=== PATIENT | female | born 1965 | race Two or more races ===

== ENCOUNTER 2021-02-03 16:26 | Inpatient (IN) | payer MEDICAID ==
[~2021-02-03] VITALS: Ht 167.6 cm; Wt 143.1 kg
--- NOTE | 2021-02-03 16:48 | NUR ---
patient came in to the er sent by PMD for hyperkalemia, denies chest pain, c/o headache x 10 days. On room air, breathing evenly and unlabored. Connected to the monitor and pulse ox. kept comfortable, will continue to monitor accordingly.
[2021-02-03 17:05] LABS: BASOPHILS # (AUTO) 0.1 K/uL (0.0-0.2); BASOPHILS % (AUTO) 0.7 % (0.0-2.0); EOSINOPHILS % (AUTO) 2.7 % (0.0-6.0); HEMATOCRIT 42 % (33-45); HEMOGLOBIN 13.9 g/dL (11.5-14.8); LYMPHOCYTES # (AUTO) 2.4 K/uL (0.8-4.8); LYMPHOCYTES % (AUTO) 16.6 % (20.0-44.0); MEAN CORPUSCULAR HGB CONC 33 g/dl (31.0-36.0); MEAN CORPUSCULAR VOLUME 99 fL (82-100); MONOCYTES % (AUTO) 7.3 % (2.0-12.0); NEUTROPHILS # (AUTO) 10.4 K/uL (1.8-8.9); NEUTROPHILS % (AUTO) 72.7 % (43.0-81.0); PLATELET COUNT (AUTO) 286 K/uL (150-450); RED BLOOD CELL COUNT(AUTO) 4.22 MIL/uL (4.0-5.2); WHITE BLOOD COUNT (AUTO) 14.3 K/uL (4.3-11.0)
[2021-02-03 17:17] LABS: CALCIUM, SERUM 9.1 mg/dL (8.5-10.1); CREATININE 2.1 mg/dL (0.6-1.3); POTASSIUM 5.8 mmol/L (3.5-5.1)
--- NOTE | 2021-02-03 17:40 | NUR ---
IV LINE ESTABLISHED G20 R AC.
[2021-02-03] MEDS ORDERED: SODIUM POLYSTYRENE SULFONATE 15 G/60 ML BOTTLE ONE (17:56)
[2021-02-03] MEDS ORDERED: DEXTROSE 50%-WATER 50 ML DISP.SYRIN ONE (17:56)
[2021-02-03] MEDS ORDERED: SODIUM BICARBONATE SYR 50 MEQ/50 ML DISP.SYRIN ONE (17:56)
[2021-02-03] MEDS ORDERED: INSULIN REGULAR, HUMAN 100 UNIT/ML 10 ML VIAL ONE (17:57)
[2021-02-03] MEDS ORDERED: INSULIN REGULAR, HUMAN 100 UNIT/ML 10 ML VIAL IV ONE (18:00)
[2021-02-03] MEDS ORDERED: ALBUTEROL FS 2.5 MG/3 ML VIAL.NEB NEB ONE (18:00)
[2021-02-03] MEDS ORDERED: SODIUM POLYSTYRENE SULFONATE 15 G/60 ML BOTTLE PO ONE (18:00)
[2021-02-03] MEDS ORDERED: SODIUM BICARBONATE SYR 50 MEQ/50 ML DISP.SYRIN IV ONE (18:00)
[2021-02-03] MEDS ORDERED: IV NS 0.9% 1,000 ML BAG IV ONE (18:00)
[2021-02-03] MEDS ORDERED: DEXTROSE 50%-WATER 50 ML DISP.SYRIN IV ONE (18:00)
[2021-02-03] MEDS ORDERED: ALBUTEROL FS 2.5 MG/3 ML VIAL.NEB ONE (18:18)
[2021-02-03] MEDS ORDERED: LEVO137T2 PO (18:19)
[2021-02-03] MEDS ORDERED: PRAV20TA4 PO (18:19)
[2021-02-03] MEDS ORDERED: SPIR50TA5 PO (18:19)
[2021-02-03] MEDS ORDERED: LISI40TA13 PO (18:19)
[2021-02-03] MEDS ORDERED: GLIP5TAB13 PO (18:19)
[2021-02-03] MEDS ORDERED: INSU100V7 SQ (18:19)
[2021-02-03] MEDS ORDERED: SITA100T PO (18:19)
--- NOTE | 2021-02-03 19:36 | NUR ---
ASSUMED CARE. PT RESTING QUIETLY, NO ACUTE DISTRESS NOTED, RESP EVEN AND UNLABORED. NO PAIN OR DISCOMFORT NOTED. CALL LIGHT WITHIN REACH. WILL CONTINUE TO MONITOR PT.
[2021-02-03] MEDS ORDERED: MAGNESIUM HYDROXIDE 30 ML UDC PO PRN (21:30)
[2021-02-03] MEDS ORDERED: ZOLPIDEM TARTRATE 5 MG TABLET PO PRN (21:30)
[2021-02-03] MEDS ORDERED: Z GUARD REMEDY 2 OZ OINT TP PRN (21:30)
[2021-02-03] MEDS ORDERED: ONDANSETRON HCL/PF 4 MG/2 ML VIAL IVP PRN (21:30)
[2021-02-03] MEDS ORDERED: MAG HYDROX/AL HYDROX/SIMETH 30 ML UDC PO PRN (21:30)
[2021-02-03] MEDS ORDERED: ACETAMINOPHEN 325 MG TABLET PO PRN (21:30)
--- NOTE | 2021-02-03 22:33 | NUR ---
PT AMBULATORY TO THE RESTROOM WITH STEADY GAIT NOTED. PT DENIES PAIN OR DISCOMFORT AT THIS TIMED.
--- NOTE | 2021-02-04 00:05 | NUR ---
TELE 304-2
--- NOTE | 2021-02-04 00:13 | NUR ---
REPORT CALLED TO CHAIR TRIMMERHALEY ALARCON. WILL TRANSPORT PT VIA ACLS PROTOCOL.
--- NOTE | 2021-02-04 00:25 | NUR ---
PT WAS TRANSFERRED TO THE THIRD FLOOR UNDER ACLS
[2021-02-04 00:30] VITALS: BP 124/71
--- NOTE | 2021-02-04 00:32 | NUR ---
PT TRANSPORTED TO UNIT ON [facility] WITH EMT AND RN AT BEDSIDE WITH ACLS PROTOCOL. NAD NOTED DURING TRANSPORT. PT AMBULATED FROM GURNEY TO BED ON STEADY GAIT
--- NOTE | 2021-02-04 01:00 | NUR ---
Patient arrived to unit at 0030. A&Ox4. VSS. Ambulatory with skin intact. Patients heart rate and rhythm regular upon auscultation. NSR on monitor. Lung sounds clear with chest movement even and unlabored. Patient states she feels fine and normal besides her R arm is a little sore from positioning earlier in the day. Oriented patient to unit protocols and bed control/call light/tv remote.
[2021-02-04] MEDS: IV 1/2NS 1000 ML 1,000 ML IV PRN ×2 (01:04→20:00)
[2021-02-04 04:00] VITALS: BP 112/56
[2021-02-04] MEDS ORDERED: *INSULIN REGULAR(HUMULIN R)HUM 100 UNIT/ML VIAL SQ PRN (04:30)
[2021-02-04] MEDS ORDERED: DEXTROSE 50%-WATER 50 ML DISP.SYRIN IV PRN (04:30)
--- NOTE | 2021-02-04 06:16 | NUR ---
Patient has been A&Ox4, sleeping well though easy to wake since admission. Fluids infusing to RAC #20G -IV patent and intact. still NSR on monitor. No hypo or hyperglycemic reactions noted.
--- NOTE | 2021-02-04 07:37 | NUR ---
RN OPENING NOTES Patient seen comfortably lying in bed, no apparent distress noted, respirations even and unlabored, no SOB, denies any pain or discomfort at this time. Safety measures maintained, brakes locked, side rails up X 2. Call light left within reach, will monitor closely for any changes.
[2021-02-04 08:09] VITALS: BP 103/56
[2021-02-04 08:17] LABS: BASOPHILS # (AUTO) 0.1 K/uL (0.0-0.2); BASOPHILS % (AUTO) 0.9 % (0.0-2.0); EOSINOPHILS % (AUTO) 3.1 % (0.0-6.0); HEMATOCRIT 40 % (33-45); HEMOGLOBIN 13.1 g/dL (11.5-14.8); LYMPHOCYTES # (AUTO) 3.6 K/uL (0.8-4.8); LYMPHOCYTES % (AUTO) 25.1 % (20.0-44.0); MEAN CORPUSCULAR HGB CONC 33 g/dl (31.0-36.0); MEAN CORPUSCULAR VOLUME 98 fL (82-100); MONOCYTES % (AUTO) 6.9 % (2.0-12.0); NEUTROPHILS # (AUTO) 9.2 K/uL (1.8-8.9); PLATELET COUNT (AUTO) 241 K/uL (150-450); RED BLOOD CELL COUNT(AUTO) 4.05 MIL/uL (4.0-5.2); WHITE BLOOD COUNT (AUTO) 14.3 K/uL (4.3-11.0)
[2021-02-04] MEDS: BLOOD SUGAR DIAGNOSTIC 1 EACH STRIP VI SCH ×4 (08:28→21:11)
[2021-02-04] MEDS: PANTOPRAZOLE 40 MG TABLET.DR PO SCH (08:28)
[2021-02-04] MEDS: INSULIN REGULAR, HUMAN 100 UNIT/ML 3 ML VIAL SQ PRN ×2 (08:29→11:55)
[2021-02-04 08:48] LABS: CALCIUM, SERUM 8.9 mg/dL (8.5-10.1); CREATININE 1.5 mg/dL (0.6-1.3); MAGNESIUM 2.2 mg/dL (1.8-2.4); PHOSPHORUS 3.2 mg/dL (2.5-4.9); POTASSIUM 5.1 mmol/L (3.5-5.1)
[2021-02-04 08:58] LABS: THYROID STIMULATING HORMONE 2.177 uIU/mL (0.358-3.74)
[2021-02-04 12:00] VITALS: BP 120/69
[2021-02-04] MEDS ORDERED: CEFTRIAXONE 1 G in IV D5W 50 ML IV SCH (14:00)
[2021-02-04 16:06] VITALS: BP 104/64
[2021-02-04 16:27] LABS: BILIRUBIN,URINE NEGATIVE (NEGATIVE); COLOR,URINE YELLOW (YELLOW); LEUKOCYTE ESTERASE ,URINE NEGATIVE (NEGATIVE); NITRITE, URINE NEGATIVE (NEGATIVE); PROTEIN,URINE NEGATIVE (NEGATIVE); UGLUCOSE NEGATIVE (NEGATIVE); UROBILINOGEN,URINE 0.2 EU/dL (0.2)
[2021-02-04 16:35] LABS: BACTERIA,URINE Few /HPF (None Seen); SQUAMOUS EPITHELIAL CELL,UR Few /HPF (None Seen); WBC,URINE 0-2 /HPF (0-3)
[2021-02-04] MEDS: glipiZIDE 5 MG TABLET PO SCH (17:03)
[2021-02-04 17:05] LABS: CREATININE, URINE 74.2 MG/DL (30.0-125.0)
--- NOTE | 2021-02-04 18:12 | NUR ---
RN CLOSING NOTES Patient in bed, AOX4, able to follow commands, can make needs known, denies any pain or discomfort at this time, no apparent distress noted. Resident has a new order to start Rocephin 1g intravenously od for pneumonia, respirations even and unlabored, no SOB, tolerating ATB well, no adverse effects noted at this time, IV site free from any infiltration. Safety measures maintained, brakes locked, side rails up X 2. All needs attended, call light left within reach, will endorse to next shift for continuity of care.
--- NOTE | 2021-02-04 19:44 | NUR ---
[facility] SPECIALIST OPENING NOTE RECEIVED PT AWAKE IN BED. A/O X4. PT IS STABLE ON ROOM AIR, NO SOB OR S/S OF RESPIRATORY DISTRESS NOTED. PT ON EXTERNAL PUBLIC HEALTH REGISTRAR READING SR IN THE 70'S. PT HAS NO C/O PAIN OR DISCOMFORT AT THIS TIME. IV ACCESS NOTED IN RAC #20 INFUSING 1/2NS @ 75 ML/HR, INTACT AND PATENT. SAFETY PRECAUTIONS MAINTAINED. BED IN LOWEST LOCKED POSITION, HOB ELEVATED, SIDE RAILS UP X2. CALL LIGHT AND TABLE WITHIN REACH. WILL CONTINUE WITH PLAN OF CARE
[2021-02-04 20:00] VITALS: BP 133/73
--- NOTE | 2021-02-04 21:16 | NUR ---
RN NOTE LANTUS 52 UNITS SQ HS WITHHELD DUE TO BLOOD SUGAR OF 150. 2 UNITS REGULAR INSULIN GIVEN PER SLIDING SCALE. MD MADE AWARE. WILL CONTINUE TO MONITOR.
[2021-02-04] MEDS ORDERED: INSULIN GLARGINE, 100 UNIT/ML CARTRIDGE SQ SCH (22:00)
[2021-02-05] VITALS: BP 119/68
[2021-02-05 04:00] VITALS: BP 108/70
[2021-02-05 06:06] LABS: BASOPHILS # (AUTO) 0.1 K/uL (0.0-0.2); BASOPHILS % (AUTO) 0.5 % (0.0-2.0); EOSINOPHILS % (AUTO) 3.2 % (0.0-6.0); HEMATOCRIT 39 % (33-45); HEMOGLOBIN 13.1 g/dL (11.5-14.8); LYMPHOCYTES # (AUTO) 3.7 K/uL (0.8-4.8); LYMPHOCYTES % (AUTO) 30.1 % (20.0-44.0); MEAN CORPUSCULAR HGB CONC 33 g/dl (31.0-36.0); MEAN CORPUSCULAR VOLUME 98 fL (82-100); NEUTROPHILS # (AUTO) 7.2 K/uL (1.8-8.9); NEUTROPHILS % (AUTO) 58.2 % (43.0-81.0); PLATELET COUNT (AUTO) 228 K/uL (150-450); RED BLOOD CELL COUNT(AUTO) 4.01 MIL/uL (4.0-5.2); WHITE BLOOD COUNT (AUTO) 12.3 K/uL (4.3-11.0)
--- NOTE | 2021-02-05 06:27 | NUR ---
LIFT BUILDER WHOLE CLOSING NOTE PT IS AWAKE IN BED. A/O X4. PT IS STABLE ON ROOM AIR, NO SOB OR S/S OF RESPIRATORY DISTRESS NOTED. PT ON EXTERNAL COST CONTROL SPECIALIST READING SR IN THE 70'S. PT HAS NO C/O PAIN OR DISCOMFORT AT THIS TIME. IV ACCESS IS INTACT, PATENT, AND FLUSHING WELL. ALL NEEDS HAVE BEEN MET. PAIN MANAGEMENT ADMINISTERED PER ORDER. SAFETY PRECAUTIONS MAINTAINED AT ALL TIMES. BED IN LOWEST LOCKED POSITION, HOB ELEVATED, SIDE RAILS UP X2. CALL LIGHT AND TABLE WITHIN REACH. WILL ENDORSE TO ONCOMING NURSE FOR FRANCA.
[2021-02-05] MEDS: BLOOD SUGAR DIAGNOSTIC 1 EACH STRIP VI SCH (06:32)
[2021-02-05 06:45] LABS: CALCIUM, SERUM 8.8 mg/dL (8.5-10.1); CREATININE 1.2 mg/dL (0.6-1.3); MAGNESIUM 1.8 mg/dL (1.8-2.4); PHOSPHORUS 3.9 mg/dL (2.5-4.9); POTASSIUM 4.6 mmol/L (3.5-5.1)
[2021-02-05] MEDS ORDERED: LEVOTHYROXINE SODIUM 137 MCG TABLET PO SCH (07:30)
--- NOTE | 2021-02-05 07:40 | NUR ---
RN OPENING NOTES Patient seen lying in bed, respirations even and unlabored, no SOB, no apparent distress noted, denies any pain or discomfort at this time. Safety measures maintained, brakes locked, side rails up X 2. Call light left within reach, will monitor closely for any changes.
[2021-02-05 08:00] VITALS: BP 112/71
[2021-02-05] MEDS: glipiZIDE 5 MG TABLET PO SCH (08:16)
[2021-02-05] MEDS: PANTOPRAZOLE 40 MG TABLET.DR PO SCH (08:16)
[2021-02-05] MEDS ORDERED: LISINOPRIL (20MG) 20 MG TABLET PO SCH (09:00)
[2021-02-05] MEDS ORDERED: ATORVASTATIN 10 MG TABLET PO SCH (09:00)
[2021-02-05] MEDS ORDERED: SPIRONOLACTONE 25 MG TABLET PO SCH (09:00)
[2021-02-05] MEDS ORDERED: LINAGLIPTIN 5 MG TABLET PO SCH (09:00)
[2021-02-05] MEDS ORDERED: AZIT500T2 PO (10:21)
[2021-02-05 12:00] VITALS: BP 123/84
--- NOTE | 2021-02-05 12:55 | NUR ---
Patient discharged home today, no c/o pain or discomfort, no apparent distress noted, breathing even and unlabored. Patient left hospital at 12:55pm, all discharge paperwork signed by patient, health teaching provided regarding medications and diet, verbalized understanding, all belongings and home medications taken by patient. Patient's new prescription electronically transmitted to patient's preferred pharmacy. Patient accompanied by [employer] to the parking lot, left in stable condition.
== END 2021-02-05 12:55 | disposition home or self-care (01) | DRG 139 ==
LOC: ER 16:26 → TRANSITION 22:39 → TELE 02-04 00:09
PROVIDERS: ADMIT Student in an Organized Health Care Education/Training Program; ATTEND Internal Medicine
DX: J15.9 Unspecified bacterial pneumonia (principal); N17.0 Acute kidney failure with tubular necrosis; Z68.43 Body mass index [BMI] 50.0-59.9, adult; D72.829 Elevated white blood cell count, unspecified; E11.9 Type 2 diabetes mellitus without complications; E03.9 Hypothyroidism, unspecified; E87.5 Hyperkalemia; E66.01 Morbid (severe) obesity due to excess calories; E78.5 Hyperlipidemia, unspecified; Z20.822 Contact with and (suspected) exposure to COVID-19; I10 Essential (primary) hypertension; Z79.4 Long term (current) use of insulin; Z79.899 Other long term (current) drug therapy; R51.9 Headache, unspecified; G89.29 Other chronic pain; Z83.3 Family history of diabetes mellitus; Z87.891 Personal history of nicotine dependence
CPT/HCPCS: 36415; 71045-TC; 76770-TC; 80048-TC; 80061-TC; 81001; 82570-TC; 82962-TC; 83735-TC; 84100-TC; 84155-TC; 84300-TC; 84443-TC; 85025-TC; 87040-TC; 87081-TC; C9803; G0378; J0696; J1815; J2405; J3490; J7030; J7060

== ENCOUNTER 2021-09-29 08:46 | Emergency (ER) | payer MEDICAID ==
[~2021-09-29] VITALS: Ht 170.2 cm; Wt 140.2 kg
[~2021-09-29 08:46] MED LIST: AZIT500T2 PO; GLIP5TAB13 PO; INSU100V7 SQ; LEVO137T2 PO; LISI40TA13 PO; PRAV20TA4 PO; SITA100T PO; SPIR50TA5 PO
--- NOTE | 2021-09-29 08:50 | NUR ---
BIB SELF SENT BY [facility]D CLINIC FOR ELEVATED POTASSIUM 8.2K+. TO ER BED 10, HOOKED TO MONITOR, VSS. CHANGED TO HOSP GOWN ,WARM BLANKET PROVIDED. PATIENT AAO x 4. BREATHING EVEN AND UNLABORED. DR HESS AT BEDSIDE
[2021-09-29 09:20] LABS: MEAN CORPUSCULAR HGB CONC 32 g/dl (31.0-36.0); PLATELET COUNT (AUTO) 242 K/uL (150-450)
[2021-09-29] MEDS ORDERED: SITA25TA PO (09:25)
[2021-09-29] MEDS ORDERED: INSU100V SQ (09:25)
[2021-09-29] MEDS ORDERED: PIOG30TA10 PO (09:25)
[2021-09-29 09:38] LABS: CALCIUM, SERUM 9.1 mg/dL (8.5-10.1); CREATININE 1.6 mg/dL (0.6-1.3)
[2021-09-29 10:20] LABS: BASOPHILS # (AUTO) 0.1 K/uL (0.0-0.2); BASOPHILS % (AUTO) 0.5 % (0.0-2.0); EOSINOPHILS % (AUTO) 2.1 % (0.0-6.0); HEMATOCRIT 42 % (33-45); HEMOGLOBIN 13.5 g/dL (11.5-14.8); LYMPHOCYTES # (AUTO) 3.2 K/uL (0.8-4.8); LYMPHOCYTES % (AUTO) 22.1 % (20.0-44.0); MEAN CORPUSCULAR VOLUME 99 fL (82-100); MONOCYTES # (AUTO) 0.9 K/uL (0.1-1.30); MONOCYTES % (AUTO) 6.3 % (2.0-12.0); NEUTROPHILS # (AUTO) 10.1 K/uL (1.8-8.9); RED BLOOD CELL COUNT(AUTO) 4.25 MIL/uL (4.0-5.2); WHITE BLOOD COUNT (AUTO) 14.7 K/uL (4.3-11.0)
[2021-09-29] MEDS ORDERED: HYDR50TA4 PO (10:22)
[2021-09-29 10:32] LABS: BILIRUBIN,URINE NEGATIVE (NEGATIVE); LEUKOCYTE ESTERASE ,URINE NEGATIVE (NEGATIVE); NITRITE, URINE NEGATIVE (NEGATIVE); PH,URINE 5.5 (5.0-8.0); PROTEIN,URINE NEGATIVE (NEGATIVE); UGLUCOSE NEGATIVE (NEGATIVE); UROBILINOGEN,URINE 0.2 EU/dL (0.2)
[2021-09-29 10:33] LABS: COLOR,URINE LIGHT YELLOW (YELLOW)
--- NOTE | 2021-09-29 10:33 | NUR ---
IV removed. Catheter intact and site benign. Pressure and 4x4 applied to site. No bleeding noted.Patient discharged to home in stable condition. Written and verbal after care instructions given. Patient verbalizes understanding of instruction.
[2021-09-29 10:34] VITALS: BP 119/78
[2021-09-29 10:36] LABS: BACTERIA,URINE None seen /HPF (None Seen); RBC,URINE NONE SEEN /HPF (0-2); SQUAMOUS EPITHELIAL CELL,UR 0-2 /HPF (None Seen); WBC,URINE NONE SEEN /HPF (0-3)
[2021-10-01] MEDS ORDERED: LORAZEPAM 1 MG TABLET ONE (00:43)
== END 2021-09-29 10:32 | disposition home or self-care (01) ==
LOC: ER 08:46
DX: E87.5 Hyperkalemia (principal); I10 Essential (primary) hypertension; E11.9 Type 2 diabetes mellitus without complications; Z79.4 Long term (current) use of insulin; Z79.899 Other long term (current) drug therapy
CPT/HCPCS: 36415; 80048-TC; 81001; 85025-TC

== ENCOUNTER 2021-12-06 11:34 | Emergency (ER) | payer MEDICAID, OTHER ==
[~2021-12-06] VITALS: Ht 170.2 cm; Wt 140.2 kg
[~2021-12-06 11:34] MED LIST changes: -AZIT500T2 PO; +HYDR50TA4 PO; +INSU100V SQ; +PIOG30TA10 PO; -SITA100T PO; +SITA25TA PO
--- NOTE | 2021-12-06 11:45 | NUR ---
BIBS C/O constipation x 5 days. AMBULATORY PLACED ON BED, AAOX4.
--- NOTE | 2021-12-06 11:45 | NUR ---
AT BED SIDE
[2021-12-06] MEDS ORDERED: IV NS 0.9% 1,000 ML BAG IV ONE (12:00)
--- NOTE | 2021-12-06 12:10 | NUR ---
BLOOD DRAWN AND SENT TO LAB
[2021-12-06 12:19] LABS: BASOPHILS # (AUTO) 0.2 K/uL (0.0-0.2); BASOPHILS % (AUTO) 1.2 % (0.0-2.0); HEMATOCRIT 44 % (33-45); LYMPHOCYTES # (AUTO) 2.9 K/uL (0.8-4.8); LYMPHOCYTES % (AUTO) 23.3 % (20.0-44.0); MEAN CORPUSCULAR HGB CONC 34 g/dl (31.0-36.0); MEAN CORPUSCULAR VOLUME 95 fL (82-100); MONOCYTES # (AUTO) 0.9 K/uL (0.1-1.30); MONOCYTES % (AUTO) 7.1 % (2.0-12.0); NEUTROPHILS # (AUTO) 8.1 K/uL (1.8-8.9); NEUTROPHILS % (AUTO) 65.4 % (43.0-81.0); PLATELET COUNT (AUTO) 278 K/uL (150-450); RED BLOOD CELL COUNT(AUTO) 4.69 MIL/uL (4.0-5.2); WHITE BLOOD COUNT (AUTO) 12.4 K/uL (4.3-11.0)
[2021-12-06 12:26] LABS: CALCIUM, SERUM 9.7 mg/dL (8.5-10.1); CREATININE 1.5 mg/dL (0.6-1.3); POTASSIUM 4.2 mmol/L (3.5-5.1)
--- NOTE | 2021-12-06 12:26 | NUR ---
[facility]
[2021-12-06 12:32] LABS: ALBUMIN 3.5 g/dL (3.4-5.0); BILIRUBIN,DIRECT 0.1 mg/dL (0.0-0.2); BILIRUBIN,TOTAL 0.5 mg/dL (0.2-1.0); TOTAL PROTEIN, SERUM 7.9 g/dL (6.4-8.2)
[2021-12-06] MEDS ORDERED: POLY17PO4 PO (13:09)
[2021-12-06 14:38] VITALS: BP 135/65
== END 2021-12-06 14:30 | disposition home or self-care (01) ==
LOC: ER 11:35
DX: K59.00 Constipation, unspecified (principal); I10 Essential (primary) hypertension; E78.5 Hyperlipidemia, unspecified; E11.9 Type 2 diabetes mellitus without complications; E03.9 Hypothyroidism, unspecified; Z79.899 Other long term (current) drug therapy
CPT/HCPCS: 74176; 80048; 80076; 83690; 85025; 96360; 99284; J7030

== ENCOUNTER 2023-03-23 09:21 | Emergency (ER) | payer OTHER ==
[~2023-03-23] VITALS: Ht 170.2 cm; Wt 143.3 kg
[~2023-03-23 09:21] MED LIST changes: +POLY17PO4 PO
[2023-03-23] MEDS ORDERED: BENZONATATE 100 MG CAPSULE PO PRN (10:00)
[2023-03-23] MEDS ORDERED: BENZONATATE 100 MG CAPSULE PO ONE (10:08)
[2023-03-23] MEDS ORDERED: ALBU18HF2 INH (11:05)
[2023-03-23] MEDS ORDERED: AZIT250T13 PO (11:05)
[2023-03-23] MEDS ORDERED: BENZ-13 PO (11:05)
[2023-03-23 11:28] VITALS: BP 135/85; TEMP 98.4; O2SAT 99
[2023-03-23] MEDS ORDERED: AZITHROMYCIN 250 MG TABLET PO ONE (11:30)
== END 2023-03-23 11:25 | disposition home or self-care (01) ==
LOC: ER 09:21
DX: R05.9 Cough, unspecified (principal); E78.5 Hyperlipidemia, unspecified; I10 Essential (primary) hypertension; E11.9 Type 2 diabetes mellitus without complications; E03.9 Hypothyroidism, unspecified; Z79.4 Long term (current) use of insulin; Z79.899 Other long term (current) drug therapy
CPT/HCPCS: 71045-TC; 82962-TC

== ENCOUNTER 2024-03-07 13:06 | Emergency (ER) | payer OTHER ==
[~2024-03-07] VITALS: Ht 167.6 cm; Wt 162.8 kg
[~2024-03-07 13:06] MED LIST changes: +ALBU18HF2 INH; +AZIT250T13 PO; +BENZ-13 PO
[2024-03-07] MEDS ORDERED: IV NS 0.9% 1,000 ML BAG IV ONE (14:00)
[2024-03-07] MEDS ORDERED: ONDANSETRON HCL/PF 4 MG/2 ML VIAL IVP ONE (14:00)
[2024-03-07 14:24] LABS: BASOPHILS # (AUTO) 0.1 K/uL (0.0-0.2); BASOPHILS % (AUTO) 0.7 % (0.0-2.0); EOSINOPHILS # (AUTO) 0.2 K/uL (0.0-0.7); EOSINOPHILS % (AUTO) 1.4 % (0.0-6.0); HEMATOCRIT 43 % (33-45); HEMOGLOBIN 14.1 g/dL (11.5-14.8); LYMPHOCYTES # (AUTO) 2.1 K/uL (0.8-4.8); LYMPHOCYTES % (AUTO) 18.5 % (20.0-44.0); MEAN CORPUSCULAR HEMOGLOBIN 31 PG (26.0-33.0); MEAN CORPUSCULAR HGB CONC 33 g/dl (31.0-36.0); MEAN CORPUSCULAR VOLUME 94 fL (82-100); MONOCYTES # (AUTO) 0.8 K/uL (0.1-1.30); MONOCYTES % (AUTO) 6.9 % (2.0-12.0); NEUTROPHILS # (AUTO) 8.2 K/uL (1.8-8.9); NEUTROPHILS % (AUTO) 72.5 % (43.0-81.0); PLATELET COUNT (AUTO) 250 K/uL (150-450); RED BLOOD CELL COUNT(AUTO) 4.58 MIL/uL (4.0-5.2); RED CELL DISTRIBUTION WIDTH 14.5 % (11.5-15.0); WHITE BLOOD COUNT (AUTO) 11.3 K/uL (4.3-11.0)
[2024-03-07 14:36] LABS: CALCIUM, SERUM 9.6 mg/dL (8.5-10.1); CREATININE 1.9 mg/dL (0.6-1.3); POTASSIUM 4.2 mmol/L (3.5-5.1)
[2024-03-07 14:38] LABS: INR 1.02 (0.91-1.10); PARTIAL THROMBOPLASTIN TIME 26.5 SEC (24.3-34.3); PROTHROMBIN TIME 10.8 SECS (9.2-11.1)
[2024-03-07 14:43] LABS: ALBUMIN 3.3 g/dL (3.4-5.0); BILIRUBIN,DIRECT 0.1 mg/dL (0.0-0.2); BILIRUBIN,TOTAL 0.4 mg/dL (0.2-1.0); TOTAL PROTEIN, SERUM 7.7 g/dL (6.4-8.2)
[2024-03-07] MEDS: DIAZEPAM 5 MG TABLET PO ONE (15:30)
[2024-03-07] MEDS ORDERED: DIAZEPAM 5 MG TABLET ONE (16:07)
[2024-03-07 16:29] LABS: APPEARANCE,URINE CLEAR (CLEAR); BILIRUBIN,URINE NEGATIVE (NEGATIVE); BLOOD, URINE NEGATIVE Ery/uL (NEGATIVE); COLOR,URINE YELLOW (YELLOW); KETONES,URINE NEGATIVE (NEGATIVE); LEUKOCYTE ESTERASE ,URINE 1+ (NEGATIVE); NITRITE, URINE NEGATIVE (NEGATIVE); PROTEIN,URINE NEGATIVE (NEGATIVE); UGLUCOSE 3+ mg/dL (NEGATIVE); UROBILINOGEN,URINE 0.2 EU/dL (0.2)
[2024-03-07 16:33] LABS: ADD URINE CULTURE YES; BACTERIA,URINE Rare /HPF (None Seen)
[2024-03-07] MEDS ORDERED: DIAZ5TAB PO ×2 (17:28)
[2024-03-07] MEDS ORDERED: NITR100C6 PO (18:01)
[2024-03-07 18:15] VITALS: BP 155/67; TEMP 98.1; O2SAT 100
== END 2024-03-07 18:15 | disposition home or self-care (01) ==
LOC: ER 13:12
DX: R42 Dizziness and giddiness (principal); N39.0 Urinary tract infection, site not specified; R11.0 Nausea; I10 Essential (primary) hypertension; E11.9 Type 2 diabetes mellitus without complications; E78.5 Hyperlipidemia, unspecified; E03.9 Hypothyroidism, unspecified; Z87.39 Personal history of other diseases of the musculoskeletal system and connective tissue
CPT/HCPCS: 36415; 71045-TC; 80048-TC; 80076-TC; 81001; 84484-TC; 85025-TC; 85730-TC; 87086-TC

== ENCOUNTER 2024-04-15 17:32 | Inpatient (IN) | payer OTHER ==
[~2024-04-15] VITALS: Ht 152.4 cm; Wt 154.2 kg
[~2024-04-15 17:32] MED LIST changes: +DIAZ5TAB PO; +NITR100C6 PO
[2024-04-15] MEDS ORDERED: CEFAZOLIN 2 GM in IV D5W 100 ML IV STA (18:43)
[2024-04-15] MEDS ORDERED: POTA10CA43 PO (19:05)
[2024-04-15] MEDS ORDERED: DAPA10TA PO (19:05)
[2024-04-15] MEDS ORDERED: FURO-145 PO (19:05)
[2024-04-15] MEDS ORDERED: SITA50TA PO (19:05)
[2024-04-15] MEDS ORDERED: TURM500C9 PO (19:05)
[2024-04-15] MEDS ORDERED: AMLO5TAB4 PO (19:05)
[2024-04-15] MEDS ORDERED: LOSA50TA39 PO (19:05)
[2024-04-15] MEDS ORDERED: LEVO175T7 PO (19:05)
[2024-04-15] MEDS ORDERED: ALLO100T PO (19:05)
[2024-04-15] MEDS ORDERED: CHOL200059 PO (19:05)
[2024-04-15] MEDS ORDERED: ASPI-1169 PO (19:05)
[2024-04-15 19:09] LABS: BASOPHILS # (AUTO) 0.1 K/uL (0.0-0.2); BASOPHILS % (AUTO) 0.7 % (0.0-2.0); EOSINOPHILS # (AUTO) 0.2 K/uL (0.0-0.7); EOSINOPHILS % (AUTO) 1.9 % (0.0-6.0); HEMATOCRIT 42 % (33-45); LYMPHOCYTES # (AUTO) 1.8 K/uL (0.8-4.8); LYMPHOCYTES % (AUTO) 19.8 % (20.0-44.0); MEAN CORPUSCULAR HEMOGLOBIN 32 PG (26.0-33.0); MEAN CORPUSCULAR HGB CONC 33 g/dl (31.0-36.0); MEAN CORPUSCULAR VOLUME 95 fL (82-100); MONOCYTES # (AUTO) 0.7 K/uL (0.1-1.30); MONOCYTES % (AUTO) 8.2 % (2.0-12.0); NEUTROPHILS # (AUTO) 6.3 K/uL (1.8-8.9); NEUTROPHILS % (AUTO) 69.4 % (43.0-81.0); PLATELET COUNT (AUTO) 262 K/uL (150-450); RED BLOOD CELL COUNT(AUTO) 4.42 MIL/uL (4.0-5.2); RED CELL DISTRIBUTION WIDTH 14.4 % (11.5-15.0)
[2024-04-15 19:15] LABS: ERYTHROCYTE SEDIMENTATION RATE 80 MM/HR (0-30)
[2024-04-15 19:27] LABS: C-REACTIVE PROTEIN 0.95 mg/dL (0.0-0.30)
[2024-04-15 19:30] LABS: CALCIUM, SERUM 9.6 mg/dL (8.5-10.1); CREATININE 2.3 mg/dL (0.6-1.3); POTASSIUM 4.1 mmol/L (3.5-5.1)
[2024-04-15] MEDS ORDERED: CEFTRIAXONE 1GM BAG (ER ONLY) 50 ML IV ONE (20:01)
[2024-04-15] MEDS: CEFTRIAXONE 1 G in IV D5W 50 ML IV ONE (20:08)
[2024-04-15] MEDS ORDERED: ACETAMINOPHEN 325 MG TABLET PO PRN (21:30)
[2024-04-15] MEDS ORDERED: MAG HYDROX/AL HYDROX/SIMETH 30 ML UDC PO PRN (21:30)
[2024-04-15] MEDS ORDERED: Z GUARD REMEDY 4 OZ OINT TP PRN (21:30)
[2024-04-15] MEDS ORDERED: ONDANSETRON HCL/PF 4 MG/2 ML VIAL IVP PRN (21:30)
[2024-04-15] MEDS ORDERED: DEXTROSE 50%-WATER 50 ML DISP.SYRIN IV PRN (21:30)
[2024-04-15 21:45] VITALS: BP 144/72; TEMP 97.5; O2SAT 96
[2024-04-15 21:50] VITALS: BP 144/72; TEMP 97.5; O2SAT 96
[2024-04-15] MEDS: BLOOD SUGAR DIAGNOSTIC 1 EACH STRIP IN SCH (22:15)
[2024-04-15] MEDS: INSULIN REGULAR, HUMAN 100 UNIT/ML 3 ML VIAL SQ PRN (22:20)
[2024-04-16 01:00] VITALS: BP 114/72; TEMP 97.5; O2SAT 96
[2024-04-16] MEDS: HYDROCODONE/APAP 5/325MG TABLET PO PRN (05:28)
[2024-04-16 06:54] LABS: BASOPHILS % (AUTO) 0.4 % (0.0-2.0); EOSINOPHILS # (AUTO) 0.2 K/uL (0.0-0.7); EOSINOPHILS % (AUTO) 2.3 % (0.0-6.0); HEMATOCRIT 41 % (33-45); HEMOGLOBIN 13.6 g/dL (11.5-14.8); LYMPHOCYTES # (AUTO) 2.2 K/uL (0.8-4.8); LYMPHOCYTES % (AUTO) 28.9 % (20.0-44.0); MEAN CORPUSCULAR HEMOGLOBIN 32 PG (26.0-33.0); MEAN CORPUSCULAR HGB CONC 33 g/dl (31.0-36.0); MEAN CORPUSCULAR VOLUME 95 fL (82-100); MONOCYTES # (AUTO) 0.7 K/uL (0.1-1.30); MONOCYTES % (AUTO) 9.1 % (2.0-12.0); NEUTROPHILS # (AUTO) 4.5 K/uL (1.8-8.9); NEUTROPHILS % (AUTO) 59.3 % (43.0-81.0); PLATELET COUNT (AUTO) 255 K/uL (150-450); RED CELL DISTRIBUTION WIDTH 14.4 % (11.5-15.0); WHITE BLOOD COUNT (AUTO) 7.6 K/uL (4.3-11.0)
[2024-04-16 07:25] LABS: CALCIUM, SERUM 9.8 mg/dL (8.5-10.1); CREATININE 1.9 mg/dL (0.6-1.3); MAGNESIUM 2.4 mg/dL (1.8-2.4); PHOSPHORUS 3.5 mg/dL (2.5-4.9); POTASSIUM 3.9 mmol/L (3.5-5.1)
[2024-04-16] MEDS: LEVOTHYROXINE SODIUM 175 MCG TABLET PO SCH (07:53)
[2024-04-16 08:00] VITALS: BP 114/51; TEMP 98.2; O2SAT 98
[2024-04-16] MEDS: DAPAGLIFLOZIN PROPANEDIOL 5 MG TABLET PO SCH (08:39)
[2024-04-16] MEDS: FUROSEMIDE 20 MG TABLET PO SCH (08:41)
[2024-04-16] MEDS: PIOGLITAZONE HCL 15 MG TABLET PO SCH (08:42)
[2024-04-16] MEDS: ASPIRIN 81 MG TAB.CHEW PO SCH (08:42)
[2024-04-16] MEDS: AMLODIPINE BESYLATE 5 MG TABLET PO SCH (08:42)
[2024-04-16] MEDS ORDERED: SITAGLIPTIN PHOSPHATE 50 MG TABLET PO SCH ×2 (09:00)
[2024-04-16] MEDS: LINAGLIPTIN 5 MG TABLET PO SCH (10:39)
[2024-04-16 16:00] VITALS: BP 107/70; TEMP 97.2; O2SAT 98
[2024-04-16 20:00] VITALS: BP 112/51; TEMP 97.3; O2SAT 96
[2024-04-16] MEDS: CEFTRIAXONE 1 G in IV D5W 50 ML IV SCH (20:17)
[2024-04-17 07:30] VITALS: BP 120/67; TEMP 97.9; O2SAT 96
[2024-04-17 07:39] LABS: BASOPHILS % (AUTO) 0.5 % (0.0-2.0); EOSINOPHILS # (AUTO) 0.2 K/uL (0.0-0.7); EOSINOPHILS % (AUTO) 3.1 % (0.0-6.0); HEMATOCRIT 40 % (33-45); HEMOGLOBIN 13.3 g/dL (11.5-14.8); LYMPHOCYTES # (AUTO) 2.6 K/uL (0.8-4.8); MEAN CORPUSCULAR HEMOGLOBIN 32 PG (26.0-33.0); MEAN CORPUSCULAR HGB CONC 33 g/dl (31.0-36.0); MEAN CORPUSCULAR VOLUME 94 fL (82-100); MONOCYTES # (AUTO) 0.7 K/uL (0.1-1.30); MONOCYTES % (AUTO) 8.8 % (2.0-12.0); NEUTROPHILS # (AUTO) 4.3 K/uL (1.8-8.9); NEUTROPHILS % (AUTO) 54.6 % (43.0-81.0); PLATELET COUNT (AUTO) 253 K/uL (150-450); RED BLOOD CELL COUNT(AUTO) 4.24 MIL/uL (4.0-5.2); RED CELL DISTRIBUTION WIDTH 14.4 % (11.5-15.0); WHITE BLOOD COUNT (AUTO) 7.9 K/uL (4.3-11.0)
[2024-04-17 07:55] LABS: CALCIUM, SERUM 8.8 mg/dL (8.5-10.1); CREATININE 1.5 mg/dL (0.6-1.3); POTASSIUM 3.8 mmol/L (3.5-5.1)
[2024-04-17] MEDS: MAGNESIUM HYDROXIDE 30 ML UDC PO PRN (14:22)
[2024-04-17] MEDS ORDERED: NA PHOS,M-B/NA PHOS,DI-BA 1 EA ENEMA RC PRN (15:30)
[2024-04-17 16:24] VITALS: BP 125/69; TEMP 98.2; O2SAT 98
[2024-04-17] MEDS: BISACODYL SUPP (10 MG) 10 MG/SUPP.RECT SUPP.RECT RC PRN (17:35)
[2024-04-17 20:00] VITALS: BP 122/70; TEMP 97.5; O2SAT 96
[2024-04-18 06:22] LABS: BASOPHILS % (AUTO) 0.4 % (0.0-2.0); EOSINOPHILS # (AUTO) 0.2 K/uL (0.0-0.7); EOSINOPHILS % (AUTO) 2.8 % (0.0-6.0); HEMATOCRIT 40 % (33-45); LYMPHOCYTES # (AUTO) 2.2 K/uL (0.8-4.8); LYMPHOCYTES % (AUTO) 29.4 % (20.0-44.0); MEAN CORPUSCULAR HEMOGLOBIN 31 PG (26.0-33.0); MEAN CORPUSCULAR HGB CONC 33 g/dl (31.0-36.0); MEAN CORPUSCULAR VOLUME 95 fL (82-100); MONOCYTES # (AUTO) 0.9 K/uL (0.1-1.30); MONOCYTES % (AUTO) 11.3 % (2.0-12.0); NEUTROPHILS # (AUTO) 4.2 K/uL (1.8-8.9); NEUTROPHILS % (AUTO) 56.1 % (43.0-81.0); PLATELET COUNT (AUTO) 233 K/uL (150-450); RED BLOOD CELL COUNT(AUTO) 4.19 MIL/uL (4.0-5.2); RED CELL DISTRIBUTION WIDTH 14.2 % (11.5-15.0); WHITE BLOOD COUNT (AUTO) 7.5 K/uL (4.3-11.0)
[2024-04-18 06:45] LABS: CALCIUM, SERUM 9.2 mg/dL (8.5-10.1); CREATININE 1.6 mg/dL (0.6-1.3); POTASSIUM 3.8 mmol/L (3.5-5.1)
[2024-04-18 08:00] VITALS: BP 138/79; TEMP 97.9; O2SAT 97
[2024-04-18 08:51] VITALS: BP 138/79
[2024-04-18] MEDS ORDERED: CEPH-570 PO (13:02)
[2024-04-18 13:58] LABS: URINE TOTAL PROTEIN 24.3 mg/dL (0-11.9)
[2024-04-18 14:40] LABS: APPEARANCE,URINE CLEAR (CLEAR); BILIRUBIN,URINE NEGATIVE (NEGATIVE); BLOOD, URINE TRACE-INTA Ery/uL (NEGATIVE); COLOR,URINE YELLOW (YELLOW); KETONES,URINE NEGATIVE (NEGATIVE); LEUKOCYTE ESTERASE ,URINE NEGATIVE (NEGATIVE); NITRITE, URINE NEGATIVE (NEGATIVE); PROTEIN,URINE NEGATIVE (NEGATIVE); UGLUCOSE 3+ mg/dL (NEGATIVE); UROBILINOGEN,URINE 0.2 EU/dL (0.2)
[2024-04-18 15:39] LABS: ADD URINE CULTURE NO; BACTERIA,URINE Rare /HPF (None Seen); RBC,URINE 0-2 /HPF (0-2); SQUAMOUS EPITHELIAL CELL,UR Few /HPF (None Seen); WBC,URINE 0-2 /HPF (0-3); YEAST,URINE Few /HPF (None Seen)
[2024-04-18 16:19] LABS: EOSINOPHIL,URINE None Seen
== END 2024-04-18 14:30 | disposition home or self-care (01) | DRG 383 ==
LOC: ER 17:32 → MED 21:09
PROVIDERS: ATTEND Student in an Organized Health Care Education/Training Program
DX: L03.116 Cellulitis of left lower limb (principal); N17.9 Acute kidney failure, unspecified; E11.22 Type 2 diabetes mellitus with diabetic chronic kidney disease; E11.40 Type 2 diabetes mellitus with diabetic neuropathy, unspecified; L97.929 Non-pressure chronic ulcer of unspecified part of left lower leg with unspecified severity; E78.5 Hyperlipidemia, unspecified; I12.9 Hypertensive chronic kidney disease with stage 1 through stage 4 chronic kidney disease, or unspecified chronic kidney disease; N18.9 Chronic kidney disease, unspecified; Z68.44 Body mass index [BMI] 60.0-69.9, adult; E66.01 Morbid (severe) obesity due to excess calories; E03.9 Hypothyroidism, unspecified; M10.9 Gout, unspecified; M89.8X9 Other specified disorders of bone, unspecified site; Z87.891 Personal history of nicotine dependence; Z79.899 Other long term (current) drug therapy; Z87.828 Personal history of other (healed) physical injury and trauma; Z79.4 Long term (current) use of insulin; Z79.84 Long term (current) use of oral hypoglycemic drugs; Z79.890 Hormone replacement therapy; I87.2 Venous insufficiency (chronic) (peripheral); I87.8 Other specified disorders of veins; I83.028 Varicose veins of left lower extremity with ulcer other part of lower leg
CPT/HCPCS: 36415; 80048-TC; 80061-TC; 81001; 82570-TC; 82962-TC; 83735-TC; 84100-TC; 84300-TC; 85025-TC; 85652-TC; 86140-TC; 87040-TC; 93970-TC; 97110-TC; 97116-TC; 97530-TC; A4223; A6253; A6403; G0378; J0690; J0696; J1815; J7030; J7060

== ENCOUNTER 2025-03-25 14:47 | Inpatient (IN) | payer OTHER ==
[~2025-03-25] VITALS: Ht 170.2 cm; Wt 160.8 kg
[~2025-03-25 14:47] MED LIST changes: -ALBU18HF2 INH; +ALLO100T PO; +AMLO5TAB4 PO; +ASPI-1169 PO; -AZIT250T13 PO; -BENZ-13 PO; +CEPH-570 PO; +CHOL200059 PO; +DAPA10TA PO; -DIAZ5TAB PO; +FURO-145 PO; -GLIP5TAB13 PO; -HYDR50TA4 PO; -INSU100V SQ; -INSU100V7 SQ; -LEVO137T2 PO; +LEVO175T7 PO; -LISI40TA13 PO; -NITR100C6 PO; -POLY17PO4 PO; +POTA10CA43 PO; -PRAV20TA4 PO; -SITA25TA PO; +SITA50TA PO; -SPIR50TA5 PO; +TURM500C9 PO
[2025-03-25] MEDS ORDERED: KETOROLAC TROMETHAMINE 15 MG/ML VIAL ONE (15:57)
[2025-03-25] MEDS: KETOROLAC TROMETHAMINE 15 MG/ML VIAL IM ONE (16:10)
[2025-03-25] MEDS: IV NS 0.9% 500 ML BAG IV ONE (16:58)
[2025-03-25] MEDS ORDERED: ONDANSETRON HCL/PF 4 MG/2 ML VIAL ONE (17:01)
[2025-03-25] MEDS ORDERED: dexaMETHasone SOD PHOSPHATE 1 ML ONE (17:01)
[2025-03-25] MEDS ORDERED: MORPHINE SULFATE INJ 4 MG/ML DISP.SYRIN ONE (17:01)
[2025-03-25 17:11] LABS: PLATELET COUNT (AUTO) 233 K/uL (150-450); RED BLOOD CELL COUNT(AUTO) 4.60 MIL/uL (4.0-5.2); RED CELL DISTRIBUTION WIDTH 15.2 % (11.5-15.0); WHITE BLOOD COUNT (AUTO) 8.4 K/uL (4.3-11.0)
[2025-03-25] MEDS: ONDANSETRON HCL/PF 4 MG/2 ML VIAL IVP ONE (17:11)
[2025-03-25] MEDS: dexaMETHasone SOD PHOSPHATE 10 MG/ML VIAL IV ONE (17:11)
[2025-03-25] MEDS: MORPHINE SULFATE INJ 2 MG/ML DISP.SYRIN IV ONE (17:11)
[2025-03-25 17:23] LABS: CALCIUM, SERUM 9.4 mg/dL (8.5-10.1); CREATININE 1.6 mg/dL (0.6-1.3); SODIUM SERUM 142.0 mmol/L (136-145); UREA NITROGEN, BLOOD 20.0 mg/dL (7-18)
[2025-03-25] MEDS ORDERED: INSU100V27 SQ (18:07)
[2025-03-25] MEDS ORDERED: LOSA50TA39 PO (18:07)
[2025-03-25] MEDS ORDERED: LEVO150T8 PO (18:07)
[2025-03-25] MEDS ORDERED: INSU100I30 SQ (18:07)
[2025-03-25] MEDS ORDERED: ACETAMINOPHEN 325 MG TABLET PO PRN (20:00)
[2025-03-25] MEDS ORDERED: Z GUARD REMEDY 4 OZ OINT TP PRN (20:00)
[2025-03-25] MEDS ORDERED: HYDROCODONE/APAP 5/325MG TABLET PO PRN (20:00)
[2025-03-25] MEDS ORDERED: ONDANSETRON HCL/PF 4 MG/2 ML VIAL IVP PRN (20:00)
[2025-03-25] MEDS ORDERED: DEXTROSE 50%-WATER 50 ML DISP.SYRIN IV PRN (20:30)
[2025-03-25 22:20] VITALS: BP 138/66; TEMP 97.7; O2SAT 97
[2025-03-25 22:30] VITALS: BP 138/66; TEMP 97.7; O2SAT 97
[2025-03-25] MEDS: PREGABALIN 25 MG CAPSULE PO SCH (23:23)
[2025-03-25] MEDS: BLOOD SUGAR DIAGNOSTIC 1 EACH STRIP IN SCH (23:23)
[2025-03-25] MEDS: METHOCARBAMOL (750MG) 750 MG TABLET PO SCH (23:24)
[2025-03-25] MEDS: INSULIN REGULAR, HUMAN 100 UNIT/ML 3 ML VIAL SQ PRN (23:26)
[2025-03-26] MEDS: LEVOTHYROXINE SODIUM 100 MCG TABLET PO SCH (08:25)
[2025-03-26] MEDS: PANTOPRAZOLE 40 MG TABLET.DR PO SCH (08:26)
[2025-03-26 08:58] VITALS: BP 96/54; TEMP 98.2; O2SAT 96
[2025-03-26] MEDS: LINAGLIPTIN 5 MG TABLET PO SCH (09:07)
[2025-03-26] MEDS: PIOGLITAZONE HCL 15 MG TABLET PO SCH (09:07)
[2025-03-26] MEDS: ALLOPURINOL 100 MG TABLET PO SCH (09:08)
[2025-03-26] MEDS: CHOLECALCIFEROL 1,000 UNIT TABLET (VIT D3) PO SCH (09:08)
[2025-03-26 09:21] VITALS: BP 147/65
[2025-03-26] MEDS: LOSARTAN POTASSIUM 50 MG TABLET PO SCH (09:21)
[2025-03-26] MEDS: AMLODIPINE BESYLATE 5 MG TABLET PO SCH (09:21)
[2025-03-26] MEDS: DAPAGLIFLOZIN PROPANEDIOL 10 MG TABLET PO SCH (09:22)
[2025-03-26 10:07] LABS: PLATELET COUNT (AUTO) 232 K/uL (150-450); RED BLOOD CELL COUNT(AUTO) 4.51 MIL/uL (4.0-5.2); RED CELL DISTRIBUTION WIDTH 15.1 % (11.5-15.0); WHITE BLOOD COUNT (AUTO) 11.8 K/uL (4.3-11.0)
[2025-03-26 10:50] LABS: CALCIUM, SERUM 9.5 mg/dL (8.5-10.1); CREATININE 1.6 mg/dL (0.6-1.3); PHOSPHORUS 2.9 mg/dL (2.5-4.9); SODIUM SERUM 141.0 mmol/L (136-145); UREA NITROGEN, BLOOD 23.0 mg/dL (7-18)
[2025-03-26] MEDS: FUROSEMIDE 20 MG TABLET PO SCH (12:28)
[2025-03-26] MEDS ORDERED: PREG25CA PO (13:18)
[2025-03-26] MEDS ORDERED: METH750T3 PO (13:18)
[2025-03-26] MEDS ORDERED: METH-649 PO (13:23)
[2025-03-26] MEDS ORDERED: INSULIN GLARGINE, 100 UNIT/ML CARTRIDGE SQ SCH (22:00)
== END 2025-03-26 18:24 | disposition home health service (06) | DRG 347 ==
LOC: ER 14:48 → MED 20:55
PROVIDERS: ADMIT Nurse Practitioner Family
DX: M54.32 Sciatica, left side (principal); Z68.43 Body mass index [BMI] 50.0-59.9, adult; E03.9 Hypothyroidism, unspecified; I12.9 Hypertensive chronic kidney disease with stage 1 through stage 4 chronic kidney disease, or unspecified chronic kidney disease; R26.89 Other abnormalities of gait and mobility; Z87.828 Personal history of other (healed) physical injury and trauma; E11.22 Type 2 diabetes mellitus with diabetic chronic kidney disease; E66.01 Morbid (severe) obesity due to excess calories; N18.32 Chronic kidney disease, stage 3b; Z79.899 Other long term (current) drug therapy; Z79.4 Long term (current) use of insulin; Z79.84 Long term (current) use of oral hypoglycemic drugs; Z79.890 Hormone replacement therapy; Z87.891 Personal history of nicotine dependence; M16.12 Unilateral primary osteoarthritis, left hip; M10.9 Gout, unspecified; Z83.3 Family history of diabetes mellitus; R26.9 Unspecified abnormalities of gait and mobility; Z91.81 History of falling
CPT/HCPCS: 36415; 71045-TC; 72131-TC; 73502; 73700-TC; 80048-TC; 82962-TC; 83735-TC; 84100-TC; 85025-TC; 97110-TC; 97116-TC; 97530-TC; 97535-TC; G0378; J1100; J1815; J1885; J2270; J2405; J7040

== ENCOUNTER 2025-04-02 07:46 | Inpatient (IN) | payer OTHER ==
[~2025-04-02] VITALS: Ht 170.2 cm; Wt 158.8 kg
[~2025-04-02 07:46] MED LIST changes: -ASPI-1169 PO; -CEPH-570 PO; +INSU100I30 SQ; +INSU100V27 SQ; +LEVO150T8 PO; -LEVO175T7 PO; +LOSA50TA39 PO; +METH-649 PO; -POTA10CA43 PO; +PREG25CA PO; -TURM500C9 PO
[2025-04-02] MEDS ORDERED: MORPHINE SULFATE INJ 4 MG/ML DISP.SYRIN ONE (08:00)
[2025-04-02] MEDS: MORPHINE SULFATE INJ 2 MG/ML DISP.SYRIN IV ONE (08:09)
[2025-04-02] MEDS ORDERED: PROPOFOL 20 ML IV ONE ×2 (08:27→10:02)
[2025-04-02] MEDS: PROPOFOL 1,000 MG/100 ML BOTTLE IV ONE (09:02)
[2025-04-02 10:25] LABS: PLATELET COUNT (AUTO) 238 K/uL (150-450); RED BLOOD CELL COUNT(AUTO) 4.70 MIL/uL (4.0-5.2); RED CELL DISTRIBUTION WIDTH 15.3 % (11.5-15.0); WHITE BLOOD COUNT (AUTO) 17.9 K/uL (4.3-11.0)
[2025-04-02] MEDS: PROPOFOL 200 MG/20 ML VIAL IV ONE ×2 (10:57→10:58)
[2025-04-02 11:25] LABS: CALCIUM, SERUM 8.2 mg/dL (8.5-10.1); CREATININE 1.6 mg/dL (0.6-1.3); SODIUM SERUM 142.0 mmol/L (136-145); UREA NITROGEN, BLOOD 40.0 mg/dL (7-18)
[2025-04-02] MEDS ORDERED: MAG HYDROX/AL HYDROX/SIMETH 30 ML UDC PO PRN (12:30)
[2025-04-02] MEDS ORDERED: MAGNESIUM HYDROXIDE 30 ML UDC PO PRN (12:30)
[2025-04-02] MEDS ORDERED: ONDANSETRON HCL/PF 4 MG/2 ML VIAL IVP PRN (12:30)
[2025-04-02] MEDS: ENOXAPARIN SODIUM 40 MG/0.4 ML DISP.SYRIN SQ SCH (13:02)
[2025-04-02] MEDS: POTASSIUM CHLORIDE 10 MEQ TABLET.SA PO ONE (14:36)
[2025-04-02] MEDS: IV NS 0.9% 1,000 ML IV PRN (14:47)
[2025-04-02 16:00] VITALS: BP 120/60; TEMP 97.3; O2SAT 98
[2025-04-02] MEDS: PREGABALIN 25 MG CAPSULE PO SCH (16:19)
[2025-04-02 20:00] VITALS: BP 149/69; TEMP 97.5; O2SAT 99
[2025-04-02] MEDS: INSULIN GLARGINE, 100 UNIT/ML CARTRIDGE SQ SCH (22:57)
[2025-04-03] MEDS: HYDROCODONE/APAP 5/325MG TABLET PO PRN (00:17)
[2025-04-03 07:22] LABS: PLATELET COUNT (AUTO) 231 K/uL (150-450); RED BLOOD CELL COUNT(AUTO) 4.34 MIL/uL (4.0-5.2); RED CELL DISTRIBUTION WIDTH 15.0 % (11.5-15.0); WHITE BLOOD COUNT (AUTO) 10.1 K/uL (4.3-11.0)
[2025-04-03 07:48] LABS: ASPARTATE AMINOTRANSFERASE 19.0 U/L (15-37); CALCIUM, SERUM 8.6 mg/dL (8.5-10.1); CREATININE 1.5 mg/dL (0.6-1.3); PHOSPHORUS 3.0 mg/dL (2.5-4.9); SODIUM SERUM 143.0 mmol/L (136-145); TOTAL PROTEIN, SERUM 6.4 g/dL (6.4-8.2); UREA NITROGEN, BLOOD 37.0 mg/dL (7-18)
[2025-04-03 07:50] LABS: LDL 74.0 mg/dL (0-99)
[2025-04-03 08:00] VITALS: BP_SYST 106; BP_SYST 149; BP_DIAS 73; BP_DIAS 83; TEMP 98; TEMP 98.4; O2SAT 96; O2SAT 97
[2025-04-03] MEDS: ALLOPURINOL 100 MG TABLET PO SCH (08:26)
[2025-04-03] MEDS: CHOLECALCIFEROL 1,000 UNIT TABLET (VIT D3) PO SCH (08:26)
[2025-04-03] MEDS: DAPAGLIFLOZIN PROPANEDIOL 10 MG TABLET PO SCH (08:26)
[2025-04-03] MEDS: LOSARTAN POTASSIUM 50 MG TABLET PO SCH (08:28)
[2025-04-03] MEDS: FUROSEMIDE 20 MG TABLET PO SCH (08:28)
[2025-04-03] MEDS: LEVOTHYROXINE SODIUM 75 MCG TABLET PO SCH (08:28)
[2025-04-03] MEDS: AMLODIPINE BESYLATE 5 MG TABLET PO SCH (08:28)
[2025-04-03] MEDS: PANTOPRAZOLE 40 MG TABLET.DR PO SCH (08:28)
[2025-04-03] MEDS: PIOGLITAZONE HCL 15 MG TABLET PO SCH (08:28)
[2025-04-03] MEDS: LINAGLIPTIN 5 MG TABLET PO SCH (08:41)
[2025-04-03] MEDS: INSULIN LISPRO/ASPART 100 UNIT/ML CARTRIDGE SQ SCH (12:48)
[2025-04-03 16:00] VITALS: BP 120/60; TEMP 99.1; O2SAT 96
[2025-04-03 21:01] VITALS: BP 129/67; TEMP 98.1; O2SAT 98
[2025-04-04] MEDS: ACETAMINOPHEN 325 MG TABLET PO PRN (00:01)
[2025-04-04 06:57] LABS: PLATELET COUNT (AUTO) 233 K/uL (150-450); RED BLOOD CELL COUNT(AUTO) 4.33 MIL/uL (4.0-5.2); RED CELL DISTRIBUTION WIDTH 14.7 % (11.5-15.0); WHITE BLOOD COUNT (AUTO) 10.0 K/uL (4.3-11.0)
[2025-04-04 07:12] LABS: ASPARTATE AMINOTRANSFERASE 21.0 U/L (15-37); CALCIUM, SERUM 8.8 mg/dL (8.5-10.1); CREATININE 1.2 mg/dL (0.6-1.3); PHOSPHORUS 2.7 mg/dL (2.5-4.9); SODIUM SERUM 142.0 mmol/L (136-145); TOTAL PROTEIN, SERUM 6.4 g/dL (6.4-8.2); UREA NITROGEN, BLOOD 31.0 mg/dL (7-18)
[2025-04-04 07:14] LABS: CREATINE KINASE, TOTAL 193.0 U/L (26-192)
[2025-04-04 08:00] VITALS: BP 139/73; TEMP 98.1; O2SAT 96
[2025-04-04 08:59] VITALS: BP 139/73
[2025-04-04] MEDS: METHOCARBAMOL (750MG) 750 MG TABLET PO PRN (12:35)
[2025-04-05 05:08] LABS: PTH, INTACT 37 pg/mL (15-65)
== END 2025-04-04 16:13 | disposition home or self-care (01) | DRG 342 ==
LOC: ER 07:49 → MED 12:06
PROVIDERS: ADMIT Nurse Practitioner Family; ATTEND Student in an Organized Health Care Education/Training Program
PROC: 0RSKXZZ Reposition Left Shoulder Joint, External Approach (ICD-10-PCS; principal; 2025-04-02)
DX: S43.005A Unspecified dislocation of left shoulder joint, initial encounter (principal); N17.0 Acute kidney failure with tubular necrosis; Z68.43 Body mass index [BMI] 50.0-59.9, adult; D72.829 Elevated white blood cell count, unspecified; E03.9 Hypothyroidism, unspecified; E11.22 Type 2 diabetes mellitus with diabetic chronic kidney disease; E66.01 Morbid (severe) obesity due to excess calories; E78.5 Hyperlipidemia, unspecified; E87.6 Hypokalemia; W18.2XXA Fall in (into) shower or empty bathtub, initial encounter; N18.32 Chronic kidney disease, stage 3b; Z79.4 Long term (current) use of insulin; Z87.891 Personal history of nicotine dependence; Z79.84 Long term (current) use of oral hypoglycemic drugs; I12.9 Hypertensive chronic kidney disease with stage 1 through stage 4 chronic kidney disease, or unspecified chronic kidney disease; E83.89 Other disorders of mineral metabolism; Y93.E1 Activity, personal bathing and showering; Y92.002 Bathroom of unspecified non-institutional (private) residence as the place of occurrence of the external cause
CPT/HCPCS: 36415; 73020; 73030-TC; 73564-TC; 76770-TC; 80048-TC; 80053-TC; 80061-TC; 80076-TC; 82550-TC; 82962-TC; 83735-TC; 83970; 84100-TC; 84155; 84165; 85025-TC; 97112-TC; 97116-TC; 97530-TC; 97535-TC; A4223; G0378; J1650; J1815; J2270; J2704; J7030